=== PATIENT | female | born 1985 | race Caucasian/White ===

== ENCOUNTER 2016-05-03 13:42 | Inpatient (IN) | payer OTHER ==
[~2016-05-03] VITALS: Ht 175.3 cm; Wt 110.7 kg
[~2016-05-03 13:42] MED LIST: OXY IR5 MG PO
[2016-05-03 15:37] VITALS: BP 117/56
--- NOTE | 2016-05-03 15:54 | History & Physical ---
General Information and HPI MD Statement: I have seen and personally examined VIVIANE TJEEDA and documented this H&P. The patient is a 31 year old female at [38] weeks and [3] days gestation who presented with a chief complaint of [CTXS]. Source of Information: patient Exam Limitations: no limitations History of Present Illness: 31yo, 38 2/7wks, c/0 ctxs started this am, getting stronger and closer since 2 PM today. debies any vaginal bleeidng aguilar LOF, reports + FM. care started at 9 wks, uncomplicated thus far. 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 Home Who Do You Live With? spouse Primary Language: Khmer Smoking Status: Never Smoked ETOH Use: denies use Illicit Drug Use: denies illicit drug use Review of Systems Review of Systems Constitutional: Reports: no symptoms. EENTM: Reports: no symptoms. Cardiovascular: Reports: no symptoms. Respiratory: Reports: no symptoms. GI: Reports: nausea. Genitourinary: Reports: see HPI. Musculoskeletal: Reports: no symptoms. Skin: Reports: no symptoms. Neurological/Psychological: Reports: no symptoms. Hematologic/Endocrine: Reports: no symptoms. Immunologic/Allergic: Reports: no symptoms. All Other Systems: Reviewed and Negative Date of LMP: 08/09/15 Post Menopausal: No Exam & Diagnostic Data Last 24 Hrs of Vital Signs/I&O Vital Signs Date Time Temp Pulse Resp B/P Pulse O2 O2 Flow FiO2 Ox Delivery Rate 05/03 1537 117/56 Intake & Output 05/03 1600 05/03 0800 05/03 0000 Intake Total Output Total Balance Patient 110.677 kg Weight Obstetric Exam Wgt Gained During : 62lb Pelvimetry: adequate Dilation (cm): 4 Effacement (%): 80 Station: -3 Membranes: intact Fluid: unknown Fundal Height (cm): 39 Multiple Gestation? No Contractions: q4 min Infant #1 - FHR Baseline: 130 Category: 1 Estimated Weight: 3800g Presentation: vertex Patient for Induction? No Physical Exam: VSS General: NAD Abdomen: gravid, soft, nontender Ext: DCT (-) Labs Blood Type & Rh: A positive Antibody Screen: negative Hct/Hgb & Platelets #1: 12.4/37.8%, [id number] Hct/Hgb & Platelets #2: 10.8/34.6%,PLT [id number] Rubella: immune VDRL #1: negative VDRL #2: negative HbsAg: negative HIV #1: negative HIV #2 negative 1 Hr P Group B Strep: negative Initial Ultrasound: IUP at 9wks 4 days Anatomy Ultrasound: normal Genetic Testing: normal Last 24 Hrs of Labs/Jas: Laboratory Tests 05/03/16 1540: CBC w Diff Pending, WBC Pending, RBC Pending, Hgb Pending, Hct Pending, MCV Pending, MCH Pending, RDW Pending, Plt Count Pending, MPV Pending, PUBS MCHC Pending, Urine Color Pending, Urine Clarity Pending, Urine pH Pending, Ur Specific [place] Pending, Urine Protein Pending, Urine Ketones Pending, Urine Nitrite Pending, Urine Bilirubin Pending, Urine Urobilinogen Pending, Ur Leukocyte Esterase Pending, Ur Microscopic Pending, Urine Hemoglobin Pending, Urine Glucose Pending Assessment/Plan Assessment/Plan: 31yo, 38 2/7wks, labor 1. admit pt, admission labs 2.pain management as needed 3. monitor closely As Ranked By This Provider Problem List: 1. Core Measures/Miscellaneous Venous Thromboembolism VTE Risk Factors: / VTE Contraindications: No Contraindications VTE Prophylaxis Ordered Inpt: Early Ambulation VTE Diagnosis: No Beta Cristine Is Beta Cristine a Home Med? No Antibiotics Is Patient on Antibiotics? No Attending MD Review Statement Attending Statement Attending MD Statement: examined this patient, discussed with family, discussed w/nursing
[2016-05-03 16:19] LABS: ABSOLUTE BASOPHIL COUNT 0 /CUMM (0.0-0.2); ABSOLUTE EOSINOPHIL COUNT 0 /CUMM (0.0-0.7); ABSOLUTE GRANULOCYTE CT 10.1 /CUMM (1.4-6.5); ABSOLUTE LYMPH COUNT 1.7 /CUMM (1.2-3.4); ABSOLUTE MONOCYTE COUNT 1.1 /CUMM (0.10-0.60); BASOPHIL % 0.3 % (0.0-2.0); EOSINOPHIL % 0.3 % (0-5); GRANULOCYTE % 77.8 % (42.2-75.2); MEAN CORPUSCULAR HGB 29.4 PG (27.0-31.0); MEAN CORPUSCULAR HGB CONC 33.9 G/DL (33.0-37.0); MEAN CORPUSCULAR VOLUME 86.8 FL (81.0-99.0); PLATELET COUNT 211 /CUMM (130-400); RBC DISTRIBUTION WIDTH 14.4 % (11.5-14.5); RED BLOOD CELL CT 4.26 /CUMM (4.20-5.40)
--- NOTE | 2016-05-03 18:15 | PN- OBGYN ---
Surgical Brief Attending Note Brief Attending Note: c/o left side still has pain after epidural, she was sitting up for topped off. FHR baselione 140, she had 1 decels to 90, last 50 sec, then return to baseline with moderate variability. cervix 4cm/80%/-2. pt turn to right side, will monitor closely
--- NOTE | 2016-05-04 00:33 | Labor & Delivery Summary ---
Delivery Summary Vaginal Delivery: Vaginal: vertex Episiotomy/Lacerations: Episiotomy/Lacerations: 2nd degree laceration Type: Perineal Repair: 3-0 Vicryl Anesthesia: Epidural Placenta: Placenta: spontanteous, normal, 3 vessel Anesthesia: block Baby's Weight: "Natanael" Apgars - 1 Min: 9 Apgars - 5 Min: 9 Additional Comments: Patient pushed with good control x approximately 30 minutes. Head delivered atraumatically. Anterior shoulder delivered almost immediately after. Body delivered without difficulty. with spontaneous cry to maternal abdomen. Cord clamped and cut. Laceration repaired with 2 and 3-0 Vicryl. Vaginal packing placed for friable tissue after repair.
[2016-05-04 08:35] LABS: ABSOLUTE BASOPHIL COUNT 0 /CUMM (0.0-0.2); ABSOLUTE EOSINOPHIL COUNT 0 /CUMM (0.0-0.7); BASOPHIL % 0.2 % (0.0-2.0); MEAN PLATELET VOLUME 8.4 FL (7.4-10.4); WHITE BLOOD CELL COUNT 15.2 /CUMM (4.8-10.8)
[2016-05-04 08:59] LABS: ABSOLUTE GRANULOCYTE CT 11.7 /CUMM (1.4-6.5); ABSOLUTE LYMPH COUNT 1.8 /CUMM (1.2-3.4); ABSOLUTE MONOCYTE COUNT 1.7 /CUMM (0.10-0.60); EOSINOPHIL % 0.1 % (0-5); MEAN CORPUSCULAR HGB 29.5 PG (27.0-31.0); MEAN CORPUSCULAR HGB CONC 33.6 G/DL (33.0-37.0); MEAN CORPUSCULAR VOLUME 87.6 FL (81.0-99.0); PLATELET COUNT 183 /CUMM (130-400); RBC DISTRIBUTION WIDTH 14.4 % (11.5-14.5)
[2016-05-04 09:07] LABS: HEMATOCRIT 29.8 % (37-47)
--- NOTE | 2016-05-04 09:37 | PN- Post Delivery/GYN ---
Subjective Subjective: feeling ok oob bleeding is light with packing in Review of Systems Constitutional: Reports: no symptoms. Denies: chills, fever. EENTM: Denies: blurred vision, double vision, visual changes. Respiratory: Denies: short of breath. Gastrointestinal: Denies: diarrhea, nausea, vomiting. Neurological/Psychological: Denies: anxiety, depressed. Objective Last 24 Hrs of Vital Signs/I&O vss Vital Signs Date Time Temp Pulse Resp B/P Pulse O2 O2 Flow FiO2 Ox Delivery Rate 05/04 0318 98.6 05/04 0015 100.2 05/03 1537 117/56 Physical Exam General Appearance Alert, Oriented X3, Cooperative, No Acute Distress Cardiovascular Regular Rate Lungs Clear to Auscultation Abdomen Soft Pelvic (FEMALE) lochia sanganous Current Medications: Current Medications Sig/Mendy Start time Last Medication Dose Route Stop Time Status Admin Acetaminophen 1,000 MG ONCE ONE 05/04 0000 DC 05/04 IV 05/04 0001 0015 Acetaminophen 650 MG Q4P PRN 05/03 231 PO Al Hydroxide/Mg 30 ML .STK-MED ONE 05/03 2007 DC Hydroxide PO 05/03 2008 Al Hydroxide/Mg 30 ML Q4-6 PRN PRN 05/03 1945 DC 05/03 Hydroxide PO 2015 Butorphanol Tartrate 1 MG ONCE ONE 05/03 1600 DC 05/03 IV 05/03 1601 1556 Butorphanol Tartrate 1 MG ONCE ONE 05/03 1600 DC 05/03 IM 05/03 1601 1557 Docusate Sodium 100 MG BID PRN 05/03 2315 AC PO Ibuprofen 800 MG Q6P PRN 05/03 2315 AC 05/04 PO 0813 Ketorolac 30 MG ONCE ONE 05/04 0000 DC 05/03 Tromethamine IV 05/04 0001 2330 Ketorolac 30 MG .STK-MED ONE 05/03 2333 DC Tromethamine IM 05/03 2334 Oxycodone/ 1 TAB Q3P PRN 05/03 231 AC 05/04 Acetaminophen PO 0704 Oxytocin 20 UNITS Q5H 05/03 2315 DC 05/03 Lactated Ringer's 1,000 ML IV 05/04 0414 2311 Last 24 Hrs of Labs/Jas: Laboratory Tests 05/04/16 0711: CBC w Diff NO MAN DIFF REQ, RBC 3.40 L, MCV 87.6, MCH 29.5, RDW 14.4, MPV 8.4, Gran % 77.0 H, Lymphocytes % 11.8 L, Monocytes % 10.9 H, Eosinophils % 0.1, Basophils % 0.2, Absolute Granulocytes 11.7 H, Absolute Lymphocytes 1.8, Absolute Monocytes 1.7 H, Absolute Eosinophils 0, Absolute Basophils 0, PUBS MCHC 33.6 05/03/16 1540: CBC w Diff NO MAN DIFF REQ, RBC 4.26, MCV 86.8, MCH 29.4, RDW 14.4, MPV 8.0, Gran % 77.8 H, Lymphocytes % 13.0 L, Monocytes % 8.6, Eosinophils % 0.3, Basophils % 0.3, Absolute Granulocytes 10.1 H, Absolute Lymphocytes 1.7, Absolute Monocytes 1.1 H, Absolute Eosinophils 0, Absolute Basophils 0, PUBS MCHC 33.9, Urine Color YEL, Urine Clarity CLEAR, Urine pH 7.0, Ur Specific [place] 1.020, Urine Protein NEG, Urine Ketones NEG, Urine Nitrite NEG, Urine Bilirubin NEG, Urine Urobilinogen 0.2, Ur Leukocyte Esterase NEG, Ur Microscopic SEDIMENT EXAMINED, Urine RBC FEW H, Urine WBC RARE, Ur Epithelial Cells MOD H, Urine Hemoglobin TRACE-INTACT, Urine Glucose NEG Assessment/Plan Assessment/Plan vag packing in will d/ c at noon 12 hours after placement Problem List: 1. Attending MD Review Statement Attending Statement Attending MD Statement: examined this patient, discussed with family, discussed with nursing
[2016-05-05] MEDS ORDERED: IBUPROFEN800 M1 PO (10:22)
--- NOTE | 2016-05-05 10:59 | PN- OBGYN ---
Surgical Brief Attending Note Brief Attending Note: PPD#2 pt is resting in bed, feeling well, no complaints PE: VSS CV RRR lungs CTA B/L Abdomen: soft, nontender, uterus firm, fundus below umbilicus, lochia mild Ext: DCT (-), edema(+) A/P: 34 yo, s/p , PPD #2 1. encourage ambulation, encourage 2.RT PP care. pt request circumcision for the baby boy, R/B/A of circumcision d/ w pt in detail, she understand , all questions ans wered, informed consent obtained. 3. will d/c home, f/u in office in 2 wks and 6 wks
== END 2016-05-05 11:59 | DRG 775 ==
LOC: CBCO 13:42 → GNO 15:28
PROVIDERS: ADMIT Obstetrics & Gynecology
PROC: 10E0XZZ Delivery of Products of Conception, External Approach (ICD-10-PCS; principal; 2016-05-03)
PROC: 0KQM0ZZ Repair Perineum Muscle, Open Approach (ICD-10-PCS; principal; 2016-05-03)
DX: O70.1 Second degree perineal laceration during delivery (principal); Z37.0 Single live birth; O76 Abnormality in fetal heart rate and rhythm complicating labor and delivery; Z3A.38 38 weeks gestation of pregnancy
CPT/HCPCS: GNOP; GNOS; 81001; J0131; J1885